=== PATIENT | female | born 1970 | race Caucasian/White ===

== ENCOUNTER 2021-08-14 15:25 | Emergency (ER) | payer OTHER ==
[~2021-08-14] VITALS: Ht 160 cm; Wt 72.6 kg
[2021-08-14] MEDS ORDERED: NEURONTIN100 MG PO (15:34)
[2021-08-14] MEDS ORDERED: ALLEGRA ALLERG180 MG PO (15:35)
[2021-08-14] MEDS ORDERED: TRAZODONE HCL50 MG PO (15:35)
[2021-08-14] MEDS ORDERED: DICLOFENAC SOD50 M1 PO (15:35)
[2021-08-14] MEDS ORDERED: SERTRALINE HCL100 MG PO (15:35)
[2021-08-14] MEDS ORDERED: FLEXERIL PO (17:40)
[2021-08-14 17:53] VITALS: BP 119/80
== END 2021-08-14 17:54 | disposition home or self-care (01) ==
LOC: M.ERS 15:25
DX: S90.32XA Contusion of left foot, initial encounter (principal); S30.0XXA Contusion of lower back and pelvis, initial encounter; M25.572 Pain in left ankle and joints of left foot; E11.9 Type 2 diabetes mellitus without complications; Z88.1 Allergy status to other antibiotic agents; Z79.899 Other long term (current) drug therapy; W18.30XA Fall on same level, unspecified, initial encounter; Y93.89 Activity, other specified; Y92.210 Daycare center as the place of occurrence of the external cause; Y99.9 Unspecified external cause status